=== PATIENT | male | born 1980 | race Caucasian/White ===

== ENCOUNTER 2016-07-04 14:46 | Emergency (ER) | payer SELFPAY | END 2016-07-04 15:32 | disposition left against medical advice (07) | LOC: ER 14:46 | DX: J02.9 Acute pharyngitis, unspecified (principal) ==

== ENCOUNTER 2016-07-05 03:21 | Emergency (ER) | payer MEDICARE, MEDICAID ==
[~2016-07-05] VITALS: Ht 177.8 cm; Wt 83.9 kg
[2016-07-05] MEDS ORDERED: IV NORMAL SALINE 1000ML BAG 1,000 ML IV ONE (04:15)
[2016-07-05] MEDS ORDERED: AMPICILLIN/SULBACTAM 3 GM in IV NORMAL SALINE 100ML 100 ML IV ONE (04:15)
[2016-07-05] MEDS ORDERED: DEXAMETHASONE SOD PHOS 20 MG/5 ML VIAL. ONE (04:21)
[2016-07-05] MEDS ORDERED: BENZOCAINE ONE 20% MUCOSAL SPRAY. (04:21)
[2016-07-05] MEDS ORDERED: DEXAMETHASONE SOD PHOS 20 MG/5 ML VIAL. IV ONE (04:30)
[2016-07-05] MEDS ORDERED: CLINDAMYCIN 900MG PREMIX 50 ML IV ONE (04:30)
[2016-07-05] MEDS ORDERED: BENZOCAINE ONE 20% MUCOSAL SPRAY. MM (04:30)
[2016-07-05] MEDS ORDERED: CLINDAMYCIN 600MG PREMIX 50 ML IV ONE (04:30)
[2016-07-05 04:52] LABS: BASO # 0.1 x10^3/uL (0.0-0.2); BASO % 0 % (0-3); EOS % 0 % (0-3); HEMATOCRIT 40.9 % (39.0-53.0); HEMOGLOBIN 13.9 g/dL (13.0-17.5); LYMPH % 5 % (24-48); MEAN CORPUSCULAR HEMOGLOBIN 30 pg (25-35); MEAN CORPUSCULAR HGB CONC 34 g/dL (31-37); MEAN CORPUSCULAR VOLUME 88 fL (79-100); MONO % 14 % (0-9); NEUT % 81 % (31-73); PLATELET COUNT 228 x10^3/uL (140-400); RED BLOOD COUNT 4.64 x10^6/uL (4.30-5.70); RED CELL DISTRIBUTION WIDTH 13.2 % (11.5-14.5); WHITE BLOOD COUNT 21.4 x10^3/uL (4.0-11.0)
[2016-07-05 05:19] LABS: CALCIUM 9.5 mg/dL (8.5-10.1); CREATININE 1.1 mg/dL (0.7-1.3); GFR 75.3; POTASSIUM 4.3 mmol/L (3.5-5.1)
--- NOTE | 2016-07-05 06:20 | PHYS DOC ---
Past Medical History Past Medical History: Other Additional Past Medical Histor: fluid on brain Past Surgical History: No Surgical History Alcohol Use: None Drug Use: Marijuana Adult General Chief Complaint Chief Complaint: SORE THROAT HPI HPI 36-year-old male presenting to the emergency department with fever and sore throat. He reports having a hard time swallowing. He also reports lots of mucus. He has been able to swallow secretions. His throat has pain that is throbbing worse with swallowing moderate to severe and associated with fever. Review of systems is negative for chest pain shortness of breath abdominal pain nausea vomiting. All other review of systems is negative unless otherwise noted in history of present illness. Review of Systems Review of Systems See above. Current Medications Current Medications Current Medications Medications (Trade) Dose Ordered Sig/Imani Start Time Stop Time Status Last Admin Dose Admin Ampicillin Sodium/ Sulbactam Sodium 3 gm/Sodium Chloride 100 ml @ 200 mls/hr 1X ONCE 07/05/16 04:15 07/05/16 04:21 DC Benzocaine (Hurricaine One) 1 spray STK-MED ONCE 07/05/16 04:21 07/05/16 04:22 DC Benzocaine 1 spray 1 spray 1X ONCE 07/05/16 04:30 07/05/16 04:31 DC 07/05/16 04:27 1 SPRAY Clindamycin Phosphate (Cleocin 600 Mg Premix) 50 ml @ 100 mls/hr 1X ONCE 07/05/16 04:30 07/05/16 04:59 DC 07/05/16 04:28 100 MLS/HR Dexamethasone Sodium Phosphate (Decadron) 20 mg STK-MED ONCE 07/05/16 04:21 07/05/16 04:22 DC Dexamethasone Sodium Phosphate 10 mg 10 mg 1X ONCE 07/05/16 04:30 07/05/16 04:31 DC 07/05/16 04:27 10 MG Sodium Chloride (Iv Sodium Chloride 0.9% 1000ml Bag) 1,000 ml @ 1,000 mls/hr 1X ONCE 07/05/16 04:15 07/05/16 05:14 DC 07/05/16 04:27 1,000 MLS/HR Allergies Allergies Allergies Coded Allergies Type Severity Reaction Last Updated Verified amoxicillin Allergy Unknown 07/05/16 Yes Physical Exam Physical Exam Constitutional: Well developed, well nourished, no acute distress, non-toxic appearance. HENT: Normocephalic, atraumatic, bilateral external ears normal, oropharynx moist, nose normal. Patient's pharynx shows exudates bilaterally with swelling of the tonsils. Patent airway present. The patient has swelling suggetive of abscess formation on the left side of his peritonsillar area. Eyes: PERRLA, EOMI, conjunctiva normal, no discharge. Neck: Normal range of motion, no tenderness, supple, no stridor. Cardiovascular:Heart rate regular rhythm, no murmur Lungs & Thorax: Bilateral breath sounds clear to auscultation [] Abdomen: Bowel sounds normal, soft, no tenderness, no masses, no pulsatile masses. Skin: Warm, dry, no erythema, no rash. Back: No tenderness, no CVA tenderness. [] Extremities: No tenderness, no cyanosis, no clubbing, ROM intact, no edema. Neurologic: Alert and oriented X 3, normal motor function, normal sensory function, no focal deficits noted. Psychologic: Affect normal, judgement normal, mood normal. [] Current Patient Data Vital Signs Vital Signs Date Time Temp Pulse Resp B/P Pulse Ox O2 Delivery O2 Flow Rate FiO2 07/05/16 03:30 99.2 107 18 98 Room Air 99.2 Lab Values Laboratory Tests Test 07/05/16 04:39 White Blood Count 21.4x10^3/uL (4.0-11.0) H Red Blood Count 4.64x10^6/uL (4.30-5.70) Hemoglobin 13.9g/dL (13.0-17.5) Hematocrit 40.9% (39.0-53.0) Mean Corpuscular Volume 88fL (79-100) Mean Corpuscular Hemoglobin 30pg (25-35) Mean Corpuscular Hemoglobin Concent 34g/dL (31-37) Red Cell Distribution Width 13.2% (11.5-14.5) Platelet Count 228x10^3/uL (140-400) Neutrophils (%) (Auto) 81% (31-73) H Lymphocytes (%) (Auto) 5% (24-48) L Monocytes (%) (Auto) 14% (0-9) H Eosinophils (%) (Auto) 0% (0-3) Basophils (%) (Auto) 0% (0-3) Neutrophils # (Auto) 17.3x10^3uL (1.8-7.7) H Lymphocytes # (Auto) 1.0x10^3/uL (1.0-4.8) Monocytes # (Auto) 2.9x10^3/uL (0.0-1.1) H Eosinophils # (Auto) 0.0x10^3/uL (0.0-0.7) Basophils # (Auto) 0.1x10^3/uL (0.0-0.2) Platelet Estimate Pending Sodium Level 132mmol/L (136-145) L Potassium Level 4.3mmol/L (3.5-5.1) Chloride Level 95mmol/L (98-107) L Carbon Dioxide Level 24mmol/L (21-32) Anion Gap 13 (6-14) Blood Urea Nitrogen 17mg/dL (8-26) Creatinine 1.1mg/dL (0.7-1.3) Estimated GFR (Cockcroft-Gault) 75.3 Glucose Level 110mg/dL (70-99) H Calcium Level 9.5mg/dL (8.5-10.1) Laboratory Tests 07/05/16 04:39 Laboratory Tests 07/05/16 04:39 EKG EKG [] Radiology/Procedures Radiology/Procedures [] Course & Med Decision Making Course & Med Decision Making Pertinent Labs and Imaging studies reviewed. (See chart for details) [] 36-year-old male presenting to the emergency department with a peritonsillar abscess. IV fluids and antibiotics given along with steroids. I attempted to drain the peritonsillar abscess without any success. The patient was then transferred to the [facility] for ENT coverage. was accepting physician. Patient be transferred by ambulance. Dragon Disclaimer Dragon Disclaimer This electronic medical record was generated, in whole or in part, using a voice recognition dictation system. Departure Departure Impression: Primary Impression: Peritonsillar abscess Additional Impression: Strep pharyngitis Disposition: HOME, SELF-CARE Condition: STABLE Referrals: NO PCP (PCP) Problem Qualifiers BRIGHT DODD MD Jul 05, 2016 06:20
[2016-07-05 06:44] VITALS: BP 111/66
[2016-07-05 06:50] LABS: NEGATIVE OBC STREP NEG; POSITIVE OBC STREP POS
[2016-07-05 07:21] LABS: PLT ESTIMATE ADEQUATE (ADEQUATE)
== END 2016-07-05 06:44 | disposition home or self-care (01) ==
LOC: ER 03:21
DX: J36 Peritonsillar abscess (principal); J02.0 Streptococcal pharyngitis; F12.10 Cannabis abuse, uncomplicated; Z88.1 Allergy status to other antibiotic agents
CPT/HCPCS: 36415; 80048; 85007; 85027; 87880; 96365; 96375; 99284; J1100; J3490; J7030

== ENCOUNTER 2018-11-01 07:45 | Emergency (ER) | payer MEDICARE, MEDICAID ==
[~2018-11-01] VITALS: Ht 175.3 cm; Wt 90.7 kg
[2018-11-01 07:51] VITALS: BP 138/78
[2018-11-01] MEDS ORDERED: METH4TAB2 PO (08:15)
[2018-11-01] MEDS ORDERED: BETA15OI6 TP (08:15)
[2018-11-01] MEDS ORDERED: DEXAMETHASONE SOD PHOS 4 MG/ML VIAL IM ONE (08:15)
[2018-11-01] MEDS ORDERED: HYDR25TA PO (08:15)
--- NOTE | 2018-11-01 08:15 | PHYS DOC ---
Past Medical History Past Medical History: Other Additional Past Medical Histor: fluid on brain Past Surgical History: No Surgical History Alcohol Use: None Drug Use: Marijuana Adult General Chief Complaint Chief Complaint: SKIN PROBLEM HPI HPI Patient is a 38 year old male who presents with complaining of poison jayla. Patient states he was walking in the reports several days ago and for the last 3 days has had pruritic rash in bilateral upper extremities and groin area that gradually getting worse. Patient denies fever and chills, shortness of breath, nausea and vomiting. Review of Systems Review of Systems Constitutional: Denies fever or chills [] Eyes: Denies change in visual acuity, redness, or eye pain [] HENT: Denies nasal congestion or sore throat [] Respiratory: Denies cough or shortness of breath [] Cardiovascular: No additional information not addressed in HPI [] GI: Denies abdominal pain, nausea, vomiting, bloody stools or diarrhea [] : Denies dysuria or hematuria [] Musculoskeletal: Denies back pain or joint pain [] Integument: Reports skin rash Neurologic: Denies headache, focal weakness or sensory changes [] Endocrine: Denies polyuria or polydipsia [] All other systems were reviewed and found to be within normal limits, except as documented in this note. Current Medications Current Medications Current Medications Medications (Trade) Dose Ordered Sig/[facility] Start Time Stop Time Status Last Admin Dose Admin Dexamethasone Sodium Phosphate (Decadron) 10 mg 1X ONCE 11/01/18 08:15 11/01/18 08:16 DC 11/01/18 08:15 10 MG Allergies Allergies Allergies Coded Allergies Type Severity Reaction Last Updated Verified amoxicillin Allergy Unknown 07/05/16 Yes Physical Exam Physical Exam Constitutional: Well nourished, mild distress, non-toxic appearance. [] HENT: Normocephalic, atraumatic. Eyes: PERRLA, EOMI, conjunctiva normal, no discharge. [] Neck: Normal range of motion, no tenderness, supple, no stridor. [] Cardiovascular:Heart rate regular rhythm, no murmur [] Lungs & Thorax: Bilateral breath sounds clear to auscultation [] Skin: Warm, dry, erythematous vesicular rash in left upper extremity in the arm on the way down to hand, small area of the same rash in his right cubital area and lower abdomen wall and groin. Back: No tenderness, no CVA tenderness. [] Extremities: No tenderness, no cyanosis, no clubbing, ROM intact, no edema. [] Neurologic: Alert and oriented X 3. Current Patient Data Vital Signs Vital Signs Date Time Temp Pulse Resp B/P (MAP) Pulse Ox O2 Delivery O2 Flow Rate FiO2 11/01/18 07:51 97.8 92 16 138/78 (98) 99 Room Air 97.8 EKG EKG [] Radiology/Procedures Radiology/Procedures [] Course & Med Decision Making Course & Med Decision Making Evaluation of patient in ER showed 38-year-old male patient with poison jayla rash in upper extremities and genital and lower abdominal wall. Patient treated with dexamethasone in ER and prescription for Medrol Dosepak, hydroxyzine, betamethasone ointment was given. Dragon Disclaimer Dragon Disclaimer This electronic medical record was generated, in whole or in part, using a voice recognition dictation system. Departure Departure Impression: Primary Impression: Poison jayla dermatitis Disposition: HOME, SELF-CARE (@ 0820) Condition: STABLE Referrals: NO PCP (PCP) Patient Instructions: Poison Jayla Additional Instructions: Drink plenty of liquids Follow-up with your primary care physician in 3-5 days Return to ER if not getting better Scripts Betamethasone/Propylene Glyc (BETAMETHASONE DP AUG 0.05% OIN) 15 Gm Oint...g. 1 GM TP BID, #60 MISC Prov: RAYRAY CALABRESE MD 11/01/18 Methylprednisolone (MEDROL) 4 Mg Tab.ds.pk 1 PKG PO UD for inflammation, #1 PKG Prov: RAYRAY CALABRESE MD 11/01/18 Hydroxyzine Hcl (HYDROXYZINE HCL) 25 Mg Tablet 1 TAB PO TID PRN for itching, #30 TAB Prov: RAYRAY CALABRESE MD 11/01/18 RAYRAY CALABRESE MD November 01, 2018 08:15
== END 2018-11-01 08:32 | disposition home or self-care (01) ==
LOC: ER 07:45
DX: L23.7 Allergic contact dermatitis due to plants, except food (principal); Z88.1 Allergy status to other antibiotic agents
CPT/HCPCS: 96372; 99283; J1100

== ENCOUNTER 2019-06-28 14:30 | Emergency (ER) | payer MEDICARE, MEDICAID ==
[~2019-06-28] VITALS: Ht 175.3 cm; Wt 200.0 kg
[~2019-06-28 14:30] MED LIST: BETA15OI6 TP; HYDR25TA PO; METH4TAB2 PO
[2019-06-28] MEDS ORDERED: IV NORMAL SALINE 1000ML BAG 1,000 ML IV SCH (14:51)
--- NOTE | 2019-06-28 14:56 | PHYS DOC ---
Past Medical History Past Medical History: Other Additional Past Medical Histor: fluid on brain Past Surgical History: No Surgical History Alcohol Use: None Drug Use: Marijuana Adult General Chief Complaint Chief Complaint: NAUSEA/VOMITING/DIARRHA HPI HPI Patient is a 39 year old male who presents with complaint of nausea and vomiting and diarrhea. Patient states for the last 2 dayshe has had multiple episodes of nonbloody diarrhea and 2 episodes of vomiting with decrease of appetite. Patient denies urinary symptoms, abdominal pain, fever and chills, chest pain and shortness of breath, cough and congestion. Patient had sick contacts at home. Review of Systems Review of Systems Constitutional: Denies fever or chills [] Eyes: Denies change in visual acuity, redness, or eye pain [] HENT: Denies nasal congestion or sore throat [] Respiratory: Denies cough or shortness of breath [] Cardiovascular: No additional information not addressed in HPI [] GI: Reports abdominal pain, nausea, vomiting, diarrhea [] : Denies dysuria or hematuria [] Musculoskeletal: Denies back pain or joint pain [] Integument: Denies rash or skin lesions [] Neurologic: Denies headache, focal weakness or sensory changes [] Endocrine: Denies polyuria or polydipsia [] All other systems were reviewed and found to be within normal limits, except as documented in this note. Current Medications Current Medications Current Medications Medications (Trade) Dose Ordered Sig/Imani Start Time Stop Time Status Last Admin Dose Admin Diphenoxylate HCl/ Atropine (Lomotil) 2 tab 1X ONCE 06/28/19 16:00 06/28/19 16:01 DC 06/28/19 15:09 2 TAB Ondansetron HCl (Zofran) 4 mg 1X ONCE 06/28/19 15:00 06/28/19 15:01 DC 06/28/19 15:09 4 MG Sodium Chloride 1,000 ml @ 1,000 mls/hr 1X ONCE 06/28/19 16:15 06/28/19 17:01 DC 06/28/19 16:13 1,000 MLS/HR Allergies Allergies Allergies Coded Allergies Type Severity Reaction Last Updated Verified Penicillins Allergy Unknown 06/28/19 Yes amoxicillin Allergy Unknown 07/05/16 Yes Physical Exam Physical Exam Constitutional: Well developed, well nourished, mild distress, non-toxic appearance. [] HENT: Normocephalic, atraumatic, dry oral mucosa. Eyes: PERRLA, EOMI, conjunctiva normal, no discharge. [] Neck: Normal range of motion, no tenderness, supple, no stridor. [] Cardiovascular:Heart rate regular rhythm, no murmur [] Lungs & Thorax: Bilateral breath sounds clear to auscultation [] Abdomen: Bowel sounds normal, soft, no tenderness, no masses, no pulsatile masses. [] Skin: Warm, dry, no erythema, no rash. [] Back: No tenderness, no CVA tenderness. [] Extremities: No tenderness, no cyanosis, no clubbing, ROM intact, no edema. [] Neurologic: Alert and oriented X 3, no focal deficits noted. [] Psychologic: Affect normal, judgement normal, mood normal. [] Current Patient Data Vital Signs Vital Signs Date Time Temp Pulse Resp B/P (MAP) Pulse Ox O2 Delivery O2 Flow Rate FiO2 06/28/19 16:30 76 14 127/90 (102) 100 Room Air 06/28/19 14:30 97.6 97.6 Lab Values Laboratory Tests Test 06/28/19 14:36 06/28/19 14:45 06/28/19 16:11 Influenza Type A Antigen Negative (NEGATIVE) Influenza Type B Antigen Negative (NEGATIVE) White Blood Count 11.0 x10^3/uL (4.0-11.0) Red Blood Count 5.73 x10^6/uL (4.30-5.70) H Hemoglobin 17.6 g/dL (13.0-17.5) H Hematocrit 51.5 % (39.0-53.0) Mean Corpuscular Volume 90 fL (79-100) Mean Corpuscular Hemoglobin 31 pg (25-35) Mean Corpuscular Hemoglobin Concent 34 g/dL (31-37) Red Cell Distribution Width 14.0 % (11.5-14.5) Platelet Count 339 x10^3/uL (140-400) Neutrophils (%) (Auto) 83 % (31-73) H Lymphocytes (%) (Auto) 7 % (24-48) L Monocytes (%) (Auto) 8 % (0-9) Eosinophils (%) (Auto) 1 % (0-3) Basophils (%) (Auto) 0 % (0-3) Neutrophils # (Auto) 9.1 x10^3/uL (1.8-7.7) H Lymphocytes # (Auto) 0.8 x10^3/uL (1.0-4.8) L Monocytes # (Auto) 0.9 x10^3/uL (0.0-1.1) Eosinophils # (Auto) 0.1 x10^3/uL (0.0-0.7) Basophils # (Auto) 0.0 x10^3/uL (0.0-0.2) Sodium Level 136 mmol/L (136-145) Potassium Level 4.1 mmol/L (3.5-5.1) Chloride Level 101 mmol/L (98-107) Carbon Dioxide Level 24 mmol/L (21-32) Anion Gap 11 (6-14) Blood Urea Nitrogen 27 mg/dL (8-26) H Creatinine 1.4 mg/dL (0.7-1.3) H Estimated GFR (Cockcroft-Gault) 56.1 BUN/Creatinine Ratio 19 (6-20) Glucose Level 126 mg/dL (70-99) H Calcium Level 9.5 mg/dL (8.5-10.1) Total Bilirubin 0.9 mg/dL (0.2-1.0) Aspartate Amino Transferase (AST) 18 U/L (15-37) Alanine Aminotransferase (ALT) 25 U/L (16-63) Alkaline Phosphatase 114 U/L (46-116) Total Protein 9.4 g/dL (6.4-8.2) H Albumin 4.7 g/dL (3.4-5.0) Albumin/Globulin Ratio 1.0 (1.0-1.7) Lipase 72 U/L (73-393) L Urine Collection Type Unknown Urine Color Yellow Urine Clarity Cloudy Urine pH 5.5 Urine Specific [place] >=1.030 Urine Protein >=300 mg/dL (NEG-TRACE) Urine Glucose (UA) Negative mg/dL (NEG) Urine Ketones (Stick) Negative mg/dL (NEG) Urine Blood Trace (NEG) Urine Nitrite Negative (NEG) Urine Bilirubin Negative (NEG) Urine Urobilinogen Dipstick 0.2 mg/dL (0.2 mg/dL) Urine Leukocyte Esterase Negative (NEG) Urine RBC 0 /HPF (0-2) Urine WBC Occ /HPF (0-4) Urine Squamous Epithelial Cells None /LPF Urine Bacteria 0 /HPF (0-FEW) Urine Hyaline Casts Moderate /HPF Urine Granular Casts Few /HPF Urine Waxy Casts Occasional /HPF Urine Mucus Mod /LPF Laboratory Tests 06/28/19 14:45 Laboratory Tests 06/28/19 14:45 EKG EKG [] Radiology/Procedures Radiology/Procedures [] Course & Med Decision Making Course & Med Decision Making Pertinent Labs and Imaging studies reviewed. (See chart for details) I've spoken with the patient and/or caregivers. I've explained the patient's condition, diagnosis and treatment plan based on information available to me at this time. I've answered the patient's and/or caregivers questions and addressed any concerns. The patient and/or caregivers have a good understanding the patient's diagnosis, condition and treatment plan as can be expected at this point. Vital signs have been stabilized. The patient's condition is stable for discharge from the emergency department. The patient will pursue further outpatient evaluation with her primary care pr ovider or other designated consulting physician as outlined in the discharge instructions. Patient and/or caregivers are agreeable to this plan of care and follow-up instructions have been explained in detail. The patient and/or caregivers have received these instructions in written format and expressed understanding of these discharge instructions. The patient and her caregivers are aware that if any significant change in condition or worsening of symptoms should prompt him to immediately return to this of the closest emergency department. If an emergent department is not readily available I would encourage him to call 911. Hollis Disclaimer Dragon Disclaimer This electronic medical record was generated, in whole or in part, using a voice recognition dictation system. Departure Departure Impression: Primary Impression: Acute gastroenteritis Additional Impressions: Dehydration Renal insufficiency Disposition: HOME, SELF-CARE (at 1645) Condition: IMPROVED Referrals: Maverick METCALF MD (PCP) Patient Instructions: Dehydration, Adult, Viral Gastroenteritis Additional Instructions: Drink plenty of liquids Follow-up with your primary care physician in 3-5 days Return to ER if not getting better Do not eat solid food for the next 24 hours Thank you for visiting [facility]. We appreciate you trusting us with your care. If any additional problems come up don't hesitate to return to visit us. Please follow up with your primary care provider so they can plan additional care if needed and know about the problem that you had. If symptoms worsen come back to the Emergency Department. Any concerning symptoms that start such as chest pain, shortness of air, weakness or numbness on one side of the body, running high fevers or any other concerning symptoms return to the ER. Scripts Ondansetron Hcl (ZOFRAN) 4 Mg Tablet 1 TAB PO PRN Q6-8HRS for nausea, #12 TAB Prov: RAYRAY CALABRESE MD 06/28/19 Problem Qualifiers RAYRAY CALABRESE MD Jun 28, 2019 14:56
[2019-06-28] MEDS ORDERED: ONDANSETRON PF 4 MG/2 ML VIAL. IV ONE (15:00)
[2019-06-28 15:04] LABS: BASO % 0 % (0-3); EOS # 0.1 x10^3/uL (0.0-0.7); EOS % 1 % (0-3); HEMATOCRIT 51.5 % (39.0-53.0); HEMOGLOBIN 17.6 g/dL (13.0-17.5); LYMPH # 0.8 x10^3/uL (1.0-4.8); LYMPH % 7 % (24-48); MEAN CORPUSCULAR HEMOGLOBIN 31 pg (25-35); MEAN CORPUSCULAR HGB CONC 34 g/dL (31-37); MEAN CORPUSCULAR VOLUME 90 fL (79-100); MONO # 0.9 x10^3/uL (0.0-1.1); MONO % 8 % (0-9); NEUT # 9.1 x10^3/uL (1.8-7.7); NEUT % 83 % (31-73); PLATELET COUNT 339 x10^3/uL (140-400); RED BLOOD COUNT 5.73 x10^6/uL (4.30-5.70)
[2019-06-28 15:11] LABS: CALCIUM 9.5 mg/dL (8.5-10.1); CREATININE 1.4 mg/dL (0.7-1.3); GFR 56.1; POTASSIUM 4.1 mmol/L (3.5-5.1)
[2019-06-28 15:17] LABS: ALBUMIN 4.7 g/dL (3.4-5.0); TOTAL BILIRUBIN 0.9 mg/dL (0.2-1.0); TOTAL PROTEIN 9.4 g/dL (6.4-8.2)
[2019-06-28 15:35] LABS: INFLUENZA A PATIENT NEGATIVE (NEGATIVE); INFLUENZA B PATIENT NEGATIVE (NEGATIVE)
[2019-06-28] MEDS ORDERED: DIPHENOXYLATE/ATROPINE TABLET. PO ONE (16:00)
[2019-06-28] MEDS ORDERED: IV NORMAL SALINE 1000ML BAG 1,000 ML IV ONE (16:15)
[2019-06-28 16:17] LABS: BILIRUBIN,URINE NEGATIVE (NEG); CLARITY,URINE CLOUDY; COLOR,URINE YELLOW; NITRITE,URINE NEGATIVE (NEG); PH,URINE 5.5; PROTEIN,URINE >=300 mg/dL (NEG-TRACE); UROBILINOGEN,URINE 0.2 mg/dL (0.2 mg/dL)
[2019-06-28 16:29] LABS: BACTERIA,URINE 0 /HPF (0-FEW); HYALINE CASTS, URINE MODERATE /HPF; RBC,URINE 0 /HPF (0-2); WBC,URINE OCC /HPF (0-4)
[2019-06-28 16:30] VITALS: BP 127/90
[2019-06-28 16:31] LABS: GRANULAR CASTS,URINE FEW /HPF; WAXY CASTS,URINE OCCASIONAL /HPF
[2019-06-28] MEDS ORDERED: ONDA4TAB7 PO (16:46)
== END 2019-06-28 17:00 | disposition home or self-care (01) ==
LOC: ER 14:30
DX: K52.9 Noninfective gastroenteritis and colitis, unspecified (principal); E86.0 Dehydration; N28.9 Disorder of kidney and ureter, unspecified; Z88.0 Allergy status to penicillin; Z88.1 Allergy status to other antibiotic agents
CPT/HCPCS: 36415; 80053; 81001; 83690; 85025; 87804; 96361; 96374; 99284; J2405; J7030

== ENCOUNTER 2021-01-27 17:49 | Emergency (ER) | payer MEDICARE, MEDICAID ==
[~2021-01-27 17:49] MED LIST changes: +ONDA4TAB7 PO
== END 2021-01-27 19:41 | disposition left against medical advice (07) ==
LOC: ER 17:49
DX: E86.0 Dehydration (principal); Z53.21 Procedure and treatment not carried out due to patient leaving prior to being seen by health care provider